=== PATIENT | female | born 1945 | race Caucasian/White ===

== ENCOUNTER → 2016-12-13 | Outpatient (CLI) | payer OTHER ==
[~2016-12-13] MED LIST: ACTOS; ALBUTEROL17 GM INH; ALBUTEROL2.5 MG/0.5 NEB; ANTI-DIARRHEAL2 M1 PO; ASPIRIN; ASPIRIN PO; ASPIRIN81 M2 PO; ATARAX PO; ATORVASTATIN CA40 MG PO; BACLOFEN10 MG PO; BACTROBAN15 GM TOP; BACTROBAN22 GM TP; BUMETANIDE2 M1 PO; BUMEX2 MG PO; BUTRANS1 EACH TD; CARAFATE PO; CELEXA10 MG PO; CIPRO PO; CLARITHROMYCIN500 MG PO; CLARITIN10 M2 PO; CYMBALTA30 MG PO; DAILY VALUE1 EACH PO; DESYREL50 MG PO; DOXYCYCLINE HY100 M3 PO; ESTRADIOL0.5 MG PO; FAMVIR500 M1 PO; FENTANYL1 PATCH .1 TOP; FERROUS SULFAT325 MG; FLEXERIL PO; FLEXERIL10 MG PO; FLONASE 0.05% N16 G1; FOLIC ACID PO; FUROSEMIDE40 MG PO; GLUCOPHAGE XR500 MG PO; GLUCOPHAGE500 MG PO; HYDROCHLOROTHIA25 MG PO; HYDROCODON-ACE1 EAC1 PO; HYDROCODON-ACE1 EAC5 PO; HYDROCODON-ACE1 EAC9 PO; HYDROXYZINE HCL10 MG PO; IMDUR PO; IMDUR-ER30 M1 PO; IMDUR-ER30 MG PO; ISMO20 MG PO; ISORDIL PO; ISOSORBIDE DINI30 MG PO; JANUVIA PO; KEFLEX PO; KEFLEX500 MG PO; LANTUS100 U/ML SUBQ; LASIX; LASIX PO; LEVAQUIN750 MG PO; LEVEMIR SUBQ; LEVEMIR100 U/ML SQ; LIPITOR; LIPITOR PO; LIPITOR40 MG PO; LISINOPRIL; LISINOPRIL PO; LISINOPRIL5 MG PO; LOPERAMIDE HCL2 M1 PO; LOPRESSOR PO; MACROBID 100 M100 MG; MAGNESIUM400 MG PO; MEDI-MECLIZINE25 M1 PO; MELOXICAM15 MG PO; METFORMIN HCL500 M1 PO; METFORMIN PO; METOPROLOL TAR25 MG PO; METOPROLOL/HCTZ PO; MONTELUKAST SOD10 MG PO; MOTION SICKNESS25 M4 PO; MYSOLINE50 MG PO; NAPROXEN PO; NEURONTIN300 MG PO; NITROGLYCERIN0.4 MG SL; NITROGLYGERIN0.4 MG SL; NITROGYLCERIN SUBLINGUAL; NITROSTAT0.4 MG SL; NORCO 10/325 TA1 TAB PO; OMEPRAZOLE20 M2 PO; OXYGEN; PLAVIX PO; PRAVASTATIN SOD40 MG PO; PRIMIDONE50 MG PO; PRINIVIL40 MG PO; PROAIR HFA8.5 GM IH; PROTONIX PO; SOLODYN PO; TOPROL XL50 MG PO; TYLENOL #3 PO; VICODIN PO; VITAMIN D50000 UNIT PO; VOLTAREN50 MG PO; ZESTRIL5 MG PO; ZETIA PO; ZOVIRAX800 MG PO
--- NOTE | ~2016-12-13 | BD1 ---
[facility] A Service of [facility] & [facility] RADIOLOGY TEXT RESULTS PATIENT: SAM CHAPMAN LOCATION: [facility] : 45 UNIT #: [id number] AGE: [address]: Renae Boyd MD SEX: F ORDER DR: [id number] [facility] [address] [facility]. [place], [place] [address] [id number] O MR#: [id number] Acc #: [id number] NAME: SAM CHAPMAN : 1945 SEX: F STUDY DATE/TIME: 12/13/2016 11:14 UNIT: [facility] ROOM: STUDY DESCRIPTION: BD Dexa Bone Dens 1+ Site Attending Physician: Renae Boyd M.D. Ordering Physician: Renae Boyd M.D. Primary Care Physician: Renae Boyd M.D. MEDICAL IMAGING REPORT This report is preliminary unless electronic signature is present EXAM DXA scan 12/13/2016 HISTORY Status post menopause with no hormone replacement therapy. Osteopenia. Hysterectomy. Arthritis and diabetes. Hypertension with blood pressure medication. FINDINGS Bone mineral density in the left femoral neck was 0.718 g/cm2 which is 1.2 standard deviations below the mean when compared to the young adult reference population which is characteristic of osteopenia. This is 0.7 standard deviations above the mean when compared to the age-matched population. Compared with 08/16/2012 there has been an increase in bone mineral density in the left hip of 0.5%. Bone mineral density in the distal left forearm was 0.424 g/cm2 which is 2.8 standard deviations below the mean when compared to the young adult reference population which is characteristic of osteoporosis. This is 0.4 standard deviations below the mean when compared to the age-matched population. Compared with 08/16/2012 there has been a decrease in bone mineral density in the left forearm of 19.3%. IMPRESSION Bone mineral density in the left hip characteristic of osteopenia and within the left forearm characteristic of osteoporosis. Compared with 08/16/2012 there has been a decrease in bone mineral density in the left forearm and an increase in bone mineral density in the left hip. Dictated by... Franco Mcclendon M.D. THIS IS AN ELECTRONICALLY VERIFIED REPORT Franco Mcclendon M.D. at 12/14/2016 8:20 AM [facility] A Service of [facility] & [facility] RADIOLOGY TEXT RESULTS PATIENT: SAM CHAPMAN LOCATION: [facility] #: [id number] : 45 UNIT #: [id number] AGE: [address]: Renae Boyd MD SEX: F ORDER DR: HALEY/pam TD: 12/13/2016 14:15 JOB #: [id number] MEDICAL IMAGING REPORT Page 1 of 1 COPY
== END | disposition home or self-care (01) ==
LOC: CWCC 10:50
DX: N95.9 Unspecified menopausal and perimenopausal disorder (principal); M85.88 Other specified disorders of bone density and structure, other site; M81.0 Age-related osteoporosis without current pathological fracture; Z88.2 Allergy status to sulfonamides
CPT/HCPCS: 77080

== ENCOUNTER → 2017-01-18 | Day surgery (SDC) | payer OTHER ==
--- NOTE | ~2017-01-18 | OR ---
Unit #: [id number] #: [id number] Patient: SAM CHAPMAN [id number] [address] [address] [id number] O MR#: [id number] NAME: SAM CHAPMAN ROOM: Date of Procedure: 01/18/2017 Admission Date: 01/18/2017 Surgeon: Alejandro Arroyo M.D. : 1945 Attending Physician: Alejandro Arroyo M.D. Primary Care Physician: Primary Care Physician No OPERATIVE REPORT PROCEDURE PERFORMED Colonoscopy to cecum. INDICATIONS FOR PROCEDURE The patient with history of blood in the stool recurrently. MEDICATIONS Monitored anesthesia. POSTOPERATIVE FINDINGS 1. No clear signs of active bleeding or lesions were seen. 2. Diverticulosis. 3. Random biopsies taken given her history of diarrhea. PLAN Follow up on pathology report. The patient to follow up in the office in 4 to 6 weeks. DESCRIPTION OF PROCEDURE The patient was explained of the procedure, risks, and benefits along with risks and benefits of anesthesia. She was brought to the endoscopy room. Propofol anesthesia was given. Rectal exam was done, which was normal. Colonoscope was lubricated, passed up the rectum, advanced under direct vision all the way to cecum. Cecum was identified by ileocecal valve and appendiceal orifice. No colitis, polyps, or masses were seen. Diverticulosis noted. I retroflexed in the rectum, small hemorrhoids seen. Random biopsies were taken from normal-appearing mucosa. Gently, the scope was pulled out. She tolerated it well. No major complications were seen. Dictated by... Laureen Dailey/mc TD: 01/19/2017 22:24 JOB #: [id number] Unit #: [id number] #: [id number] Patient: SAM CHAPMAN OPERATIVE REPORT Page 1 of 1 X Alejandro Arroyo MD X PROCEDURE OPERATIVE NOTE
== END | disposition home or self-care (01) ==
LOC: COPS 07:24
DX: K52.9 Noninfective gastroenteritis and colitis, unspecified (principal); K57.30 Diverticulosis of large intestine without perforation or abscess without bleeding; K64.9 Unspecified hemorrhoids; I25.10 Atherosclerotic heart disease of native coronary artery without angina pectoris; I10 Essential (primary) hypertension; J44.9 Chronic obstructive pulmonary disease, unspecified; K21.9 Gastro-esophageal reflux disease without esophagitis; Z88.2 Allergy status to sulfonamides; Z91.040 Latex allergy status; E66.9 Obesity, unspecified; G47.30 Sleep apnea, unspecified; Z68.41 Body mass index [BMI] 40.0-44.9, adult; Z79.82 Long term (current) use of aspirin; Z77.22 Contact with and (suspected) exposure to environmental tobacco smoke (acute) (chronic); Z79.899 Other long term (current) drug therapy; Z79.1 Long term (current) use of non-steroidal anti-inflammatories (NSAID); Z95.1 Presence of aortocoronary bypass graft; Z90.710 Acquired absence of both cervix and uterus; Z90.49 Acquired absence of other specified parts of digestive tract
CPT/HCPCS: 88305